=== PATIENT | male | born 1990 | race Caucasian/White ===

== ENCOUNTER 2021-05-31 10:23 | Emergency (ER) | payer BC, SELFPAY ==
[2021-05-31] MEDS ORDERED: Famotidine 20 MG TAB ONE (10:29)
[2021-05-31] MEDS ORDERED: diphenhydrAMINE 50 MG/ML VIAL ONE (10:29)
[2021-05-31] MEDS ORDERED: methylPREDNISolone Sod Succ/PF 125 MG/2 ML VIAL ONE (10:29)
[2021-05-31] MEDS ORDERED: EPINEPHrine 1 MG/ML AMP ONE ×2 (10:30→10:40)
[2021-05-31] MEDS ORDERED: EPINEPHrine 1 MG/10 ML Abboject SYRINGE ONE (10:31)
[2021-05-31] MEDS ORDERED: Famotidine In NaCl 20 mg/50 ml Premix Bag ONE (10:52)
[2021-05-31 11:28] LABS: #Basophils 0.1 thou/uL (0.0-0.2); #Eosinphils 0.1 thou/uL (0.0-0.7); #Lymphocytes 2.1 thou/uL (1.20-3.40); #Monocytes 0.4 thou/uL (0.11-0.59); #Neutrophils 5.1 thou/uL (1.40-6.50); %Basophils 1.2 % (0.0-1.0); %Eosinophils 1.2 % (0.0-10.0); %Lymphocytes 26.4 % (21.0-51.0); %Monocytes 5.6 % (0.0-10.0); %Neutrophils 65.6 % (42.0-75.0); Mean Corpuscular HGB CONC 33.2 g/dL (32.0-36.0); Mean Corpuscular Hemoglobin 28.9 pg (27.0-31.0); Mean Corpuscular Volume 87.1 fL (78.0-98.0); Mean Platelet Volume 7.8 fL (7.4-10.4); Platelet Count 227 thou/uL (130-400); RBC Distribution Width 11.8 % (11.5-14.5); Red Blood Cell (RBC) Count 5.52 mill/uL (4.70-6.10); White Blood Cell (WBC) Count 7.8 thou/uL (4.8-10.8)
[2021-05-31 11:44] LABS: ALT (SGPT) 146 U/L (8-55); AST (SGOT) 49 U/L (5-34); Albumin 4.3 g/dL (3.5-5.0); Alkaline Phosphatase 123 U/L (40-110); Anion Gap 13 mmol/L (10-20); BUN (Urea Nitrogen) 10 mg/dL (8.9-20.6); Bilirubin, Total 0.4 mg/dL (0.2-1.2); Calc. Creatinine Clearance 0 mL/min (70-130); Calcium 9.5 mg/dL (7.8-10.44); Carbon Dioxide 25 mmol/L (22-29); Chloride 106 mmol/L (98-107); Globulin 3.5 g/dL (2.4-3.5); Glucose 99 mg/dL (70-105); Potassium 4.3 mmol/L (3.5-5.1); Protein, Total 7.8 g/dL (6.0-8.3); Sodium 140 mmol/L (136-145)
== END 2021-05-31 15:19 | disposition home or self-care (01) ==
LOC: BURERS 10:23
DX: T63.441A Toxic effect of venom of bees, accidental (unintentional), initial encounter (principal)
CPT/HCPCS: 36415; 80053; 85025; 96365; 96372; 96375; J0171; J1200; J2930